=== PATIENT | male | born 1990 | race Caucasian/White ===

== ENCOUNTER 2017-07-31 13:24 | Day surgery (SDC) | payer OTHER ==
[~2017-07-31 13:24] MED LIST: LACTATED RINGERS 1,000 ML IV ONE
[2017-07-31] MEDS ORDERED: LACTATED RINGERS 1,000 ML IV ONE (13:45)
[2017-07-31] MEDS ORDERED: LIDOCAINE 1%-EPI 1:100000 20 ML MDV SUBQ ONE ×2 (15:40)
[2017-07-31] MEDS ORDERED: BUPIVACAINE 0.25% PF 30 ML VIAL SUBQ ONE ×2 (15:41)
[2017-07-31] MEDS ORDERED: MIDAZOLAM 2 MG/2 ML VIAL IVP ONE (16:00)
[2017-07-31] MEDS ORDERED: fentaNYL 100 MCG/2 ML VIAL IVP ONE (16:00)
[2017-07-31 17:17] VITALS: BP 122/68
--- NOTE | 2017-08-02 08:32 | OPERATIVE REPORT ---
DATE OF SURGERY: 07/31/2017 00:00:00 PREOPERATIVE DIAGNOSIS: Right upper back mass, most likely lipoma. POSTOPERATIVE DIAGNOSIS: Right upper back mass, most likely lipoma. NAME OF PROCEDURES 1. Excision of 8 cm back mass. 2. Layered closure, intermediate, back incision measuring 5 cm. OPERATING SURGEON: Jair Sher MD ANESTHESIA: Monitored anesthesia care. INDICATIONS FOR PROCEDURE: The patient is a 27-year-old male who has a slowly growing mass on his elijah k. He would like to have it removed. FINDINGS AT PROCEDURE: The patient had an 8 cm back mass located in the subcutaneous tissue. It measu red approximately 8 cm in size and appeared to be a lipoma. PROCEDURE: After informed consent was obtained, the patient was taken to the operating room and place d in supine position. MAC anesthesia was administered. He was then rolled into a prone position. The patient's back overlying the lesion was then prepped and draped in usual sterile fashion. The skin ov erlying the lesion was then injected with local anesthesia. A transverse incision was made in the ski n using a scalpel. It was carried down to the mass using electrocautery. The mass was then encountere d and appeared to be a lipoma. It was then dissected free from surrounding structures using both blun t dissection and cautery, removing it in total. There were some areas where it had attenuated itself between the fascia and areas in the subcutaneous tissue. Care was taken to remove all of these extens ions. With it being removed in total, the wound was then irrigated and hemostasis was obtained using electrocautery. Subcutaneous tissue was then approximated using interrupted 3-0 Vicryl suture. The sk in incision was closed using 4-0 Monocryl subcuticular stitch. Dermabond was then applied. The patien t was then awakened and taken from the procedure room in stable condition after placing him in a supi ne position. ESTIMATED BLOOD LOSS: Less than 5 mL. COMPLICATIONS: None. CONDITION OF THE PATIENT AT END OF PROCEDURE: Stable. SPECIMENS: Back mass. DRAINS/PACKS: None. CLASSIFICATION OF WOUND: Clean. JOB #: [id number] EXT JOB #:[id number]
== END 2017-07-31 13:25 | disposition home or self-care (01) ==
LOC: SDS 13:24
PROVIDERS: ATTEND Surgery
PROC: 0JB70ZZ Excision of Back Subcutaneous Tissue and Fascia, Open Approach (ICD-10-PCS; principal; 2017-07-31 14:30)
DX: D17.1 Benign lipomatous neoplasm of skin and subcutaneous tissue of trunk (principal)
CPT/HCPCS: 21931; J7120